=== PATIENT | female | born 1965 | race Caucasian/White ===

== ENCOUNTER 2017-11-11 14:24 | Emergency (ER) | payer BC ==
[2017-11-11 14:28] VITALS: BP 140/78; PULSE 92; RESP 16; TEMP 98.1; O2SAT 96
--- NOTE | 2017-11-11 15:00 | EDPHY ---
General Narrative: CHIEF COMPLAINT: Fall, head injury HISTORY OF PRESENT ILLNESS: Patient complains of head injury. She says that she was hiking with her dog within the past hour. She got pulled over by her dog, falling backwards. She landed on her back in her head. She struck rocks and a dirt. No loss of consciousness. She does have a mild headache where she has some swelling of the scalp. She has no neck pain or stiffness. No vomiting. No visual disturbance. She does feel mildly dizzy but no loss of consciousness. She has no chest, back or abdominal pain or injury. No injuries to the arms or legs. She does not take any blood thinners. No repetitive head injuries. No other associated complaints or modifying factors. REVIEW OF SYSTEMS: Ten systems reviewed and are negative unless otherwise noted in the HPI PCP: Dr. Ronquillo SPECIALISTS: None PAST MEDICAL HISTORY: None PAST SURGICAL HISTORY: No recent surgeries SOCIAL HISTORY: Nonsmoker. Occasional alcohol. No drug use. FAMILY HISTORY: Noncontributory EXAMINATION General Appearance: Alert, no distress Head: normocephalic, atraumatic. No Andrade sign. No raccoon eyes. superficial occipital hematoma. no laceration Eyes: Pupils equal and round, no conjunctival pallor or injection ENT, Mouth: Mucous membranes moist Neck: Normal inspection, supple, non-tender. no crepitus or step off. Respiratory: Lungs are clear to auscultation. Cardiovascular: Regular rate and rhythm. no murmur. Back: non-tender, no bony abnormalities. no crepitus or step offs Neurological: GCS 15. CN II-XII intact. A&O, nonfocal, normal heel walk. Normal toe walk. No pronator drift. Strength is 5/5 in all 4 limbs. Normal mental status Skin: Warm and dry, no rash. No laceration. No puncture. No abrasion. Extremities: Nontender, no pedal edema Psychiatric: Mood and affect normal DIFFERENTIAL DIAGNOSES: Including but not limited to subarachnoid hemorrhage, subdural hematoma, concussion, hematoma, closed head injury MDM: 3:00 p.m. Mechanical fall with closed head injury. There is a posterior scalp hematoma over the occiput. No laceration. No puncture. No Andrade sign or raccoon eyes. No loss of consciousness. [place] CT head rules are negative. She is well-appearing. Appropriate mental status. I did offer CT scan of the head despite lack of emergent need for this. She has declined. Recommend ice to the affected area, Tylenol. We discussed ED precautions including worsening headache, neck pain or stiffness, vomiting, changes in vision or difficulty with thought process. She is to return to the emergency department immediately for any of these. She is comfortable with this plan and discharged home in stable condition. SUPERVISION: Patient was independently examined, but I discussed the case with my primary supervising physician Dr. White. - History Smoking Status: Never smoked - Objective Vital Signs: Initial Vital Signs Temperature (C) 98.1 F 11/11/17 14:26 Heart Rate 92 11/11/17 14:26 Respiratory Rate 16 11/11/17 14:26 Blood Pressure 140/78 H 11/11/17 14:26 O2 Sat (%) 96 11/11/17 14:26 O2 Delivery Mode Room Air Allergies/Adverse Reactions: No Known Allergies Allergy (Unverified 11/11/17 14:25) Home Medications: Medication Instructions Recorded NK [No Known Home Meds] 11/11/17 Departure - Departure Disposition: Home, Routine, Self-Care Clinical Impression: Closed head injury Qualifiers: Encounter type: initial encounter Qualified Code(s): S09.90XA - Unspecified injury of head, initial encounter Hematoma of occipital surface of head Qualifiers: Encounter type: initial encounter Qualified Code(s): S00.83XA - Contusion of other part of head, initial encounter Condition: Good Instructions: Head Injury (ED), Concussion (ED) Additional Instructions: 1. Recommend Tylenol 650mg every 4-6 hours as needed for pain 2. Ice to affected area of the scalp 3. Head injury precautions including worsening headache, any neck pain or stiffness, any vomiting, visual disturbance 4. Follow up with primary care physician Referrals: Jasmina Madrid, RN, [employer] [Primary Care Provider] - As per Instructions
== END 2017-11-11 15:50 | disposition home or self-care (01) ==
DX: S00.83XA Contusion of other part of head, initial encounter (principal); W18.39XA Other fall on same level, initial encounter; Y99.8 Other external cause status; Y93.01 Activity, walking, marching and hiking

== ENCOUNTER → 2019-03-02 | Outpatient (CLI) | payer BC | LOC: FIMAGING 16:58 | PROVIDERS: ATTEND Family Medicine | DX: S93.492A Sprain of other ligament of left ankle, initial encounter (principal) ==